=== PATIENT | female | born 1965 | race Two or more races ===

== ENCOUNTER 2017-11-25 08:19 | Outpatient (CLI) | payer OTHER | END 2017-11-25 08:45 | disposition home or self-care (01) | LOC: MRI 08:19 | DX: K80.10 Calculus of gallbladder with chronic cholecystitis without obstruction (principal) | CPT/HCPCS: 74181 ==

== ENCOUNTER 2018-01-06 07:00 | Day surgery (SDC) | payer OTHER ==
[~2018-01-06] VITALS: Ht 154.9 cm; Wt 108.9 kg
[~2018-01-06 07:00] MED LIST: ALTACE2.5 MG PO; BISOPROLOL-HCT1 EACH PO; SYNTHROID150 MCG PO; ZOCOR20 MG PO
== END 2018-01-06 17:00 | disposition home or self-care (01) ==
LOC: SURH 07:00 → CIR.AMB 07:00 → SURH 07:15 → EDSTATUS 07:15 → O/R 12:30 → CIR.AMB 17:00
DX: K80.10 Calculus of gallbladder with chronic cholecystitis without obstruction (principal)

== ENCOUNTER 2020-11-22 00:24 | Emergency (ER) | payer OTHER ==
[~2020-11-22] VITALS: Ht 154.9 cm; Wt 104.3 kg
[2020-11-22] MEDS ORDERED: ALTACE2.5 MG (00:35)
[2020-11-22] MEDS ORDERED: LEVSIN/SL0.125 MG SL (03:43)
== END 2020-11-22 03:55 | disposition home or self-care (01) ==
LOC: ER 00:24
DX: R10.84 Generalized abdominal pain (principal)

== ENCOUNTER 2022-12-06 22:14 | Emergency (ER) | payer OTHER ==
[~2022-12-06] VITALS: Ht 154.9 cm; Wt 104.3 kg
[~2022-12-06 22:14] MED LIST changes: +ALTACE2.5 MG; +LEVSIN/SL0.125 MG SL
[2022-12-06] MEDS ORDERED: LAMOTRIGINE5 MG PO (22:41)
== END 2022-12-06 23:41 | disposition home or self-care (01) ==
LOC: ER 22:14
DX: M94.0 Chondrocostal junction syndrome [Tietze] (principal)

== ENCOUNTER 2024-10-17 11:59 | Inpatient (IN) | payer OTHER ==
[~2024-10-17] VITALS: Ht 154.9 cm; Wt 83.9 kg
[~2024-10-17 11:59] MED LIST changes: +LAMOTRIGINE5 MG PO
--- NOTE | 2024-10-17 12:05 | NUR ---
SE RECIBE PACIENTE EN AMBULANCIA ALERTA Y ORIENTADO X3.LA MISMA REFIERE DOLOR ABDOMINAL Y VOMITOS. S/V ESTABLE AL MOMENTO.PACIENTE EN MCKAY CON BARRANDAS ELEVADA EN ESPERA DE EVALUACION MEDICA.
[2024-10-17] MEDS ORDERED: TRAMADOL HCL 50 MG TABLET PO ONE (17:15)
[2024-10-17] MEDS ORDERED: ONDANSETRON HCL 2 MG/ML VIAL IV ONE (17:15)
[2024-10-17] MEDS ORDERED: FAMOtidine 10 MG/ML (4ML VIAL) IV ONE (17:15)
[2024-10-17] MEDS ORDERED: FAMOTIDINE/PF 20 MG/2 ML VIAL ONE (17:30)
[2024-10-17] MEDS ORDERED: ONDANSETRON HCL 2 MG/ML VIAL ONE (17:30)
--- NOTE | 2024-10-17 17:50 | NUR ---
PTE ES ORIENTADA SOBRE TX MEDICO Y LA MSIAM REFIERE ENTENDER. SE CANALIZA A PTE EN BRAZO JOSE CON ANGIO #20, SE RECOLECTAN MUESTRAS DE LAB Y SE ADMINISTRAN MEDICAMENTOS ROHINI ORDEN MEDICA BAJO MEDIDAS ASEPTICAS.
[2024-10-17 18:02] LABS: HEMATOCRIT 42.8 % (36.0-45.00); HEMOGLOBIN 14.3 g/dL (12.0-15.00); MEAN CELL VOLUME 87.8 fL (80.00-100.00); MEAN CORPUSCULAR HEMOGLOBIN 29.3 pg (27.00-32.0); MEAN CORPUSCULAR HGB CONC 33.3 g/dl (32.0-36.0); PLATELET COUNT 378 K/uL (150-450); RED BLOOD COUNT 4.88 M/uL (4.00-6.00); RED CELL DISTRIBUTION WIDTH 13.4 % (11.5-14.5)
[2024-10-17 18:13] LABS: PARTIAL THROMBOPLASTIN TIME 27.8 SECONDS (22.0-34.0); PROTHROMBIN TIME 10.9 SECONDS (9.0-11.5)
[2024-10-17 18:19] LABS: PH,URINE 5.5 (5.0-8.0); URINE APPEARANCE Cloudy; URINE BILIRRUBIN Negative (NEGATIVE); URINE BLOOD Small; URINE COLOR Yellow; URINE GLUCOSE Negative (NEGATIVE); URINE KETONE 15 (NEGATIVE); URINE LEUKOCYTE Moderate; URINE NITRATE Negative; URINE PROTEIN Trace (NEGATIVE); URINE UROBILINOGEN 0.2 E.U./dl
[2024-10-17 18:24] LABS: URINE EPITHELIAL CELLS 59.5 uL (0.0-38.8); URINE RBC 21.9 uL (0.0-20.8); URINE WBC 61.1 uL (0.0-23.2)
[2024-10-17 18:31] LABS: ALBUMIN 3.8 gm/dL (3.4-5.0); BILIRUBIN TOTAL 0.3 mg/dL (0.3-1.2); CALCIUM 9.4 mg/dL (8.5-10.1); GFR 57.15; GLOBULINA 3.7 G/DL (2.4-3.5); POTASSIUM 4.38 mEq/L (3.5-5.1); TOTAL PROTEIN 7.5 gm/dL (6.4-8.2)
[2024-10-17 19:24] LABS: URINE CAST 0.58 uL (0.0-1.40); URINE YEAST FEW /hpf
[2024-10-17] MEDS ORDERED: PIPERACILLIN/TAZOBACTAM SODIUM 3.375 GM VIAL IV ONE ×2 (20:15→22:12)
[2024-10-17] MEDS ORDERED: BUTALB/ACETAMINOPHEN/CAFFEINE 1 TAB TABLET PO ONE ×2 (21:45→22:12)
[2024-10-17] MEDS ORDERED: ACETAMINOPHEN 500 MG GEL..CAP PO PRN (22:45)
[2024-10-17] MEDS ORDERED: 0.9 % SODIUM CHLORIDE 1,000 ML IV SCH (22:45)
[2024-10-17] MEDS ORDERED: CEFTRIAXONE SODIUM 2,000 MG in 0.9 % SODIUM CHLORIDE 100 ML IV SCH (22:45)
[2024-10-18] MEDS ORDERED: CEFTRIAXONE SODIUM 2,000 MG VIAL ONE (02:41)
[2024-10-18 02:55] VITALS: BP 119/65
[2024-10-18 03:16] LABS: INR 1.02; PARTIAL THROMBOPLASTIN TIME 28.5 SECONDS (22.0-34.0); PROTHROMBIN TIME 11.1 SECONDS (9.0-11.5)
[2024-10-18] MEDS ORDERED: LEVOTHYROXINE SODIUM 150 MCG TABLET PO SCH (06:00)
[2024-10-18 07:40] VITALS: BP 98/61; O2SAT 97
[2024-10-18] MEDS ORDERED: RAMIPRIL 2.5 MG CAPSULE PO SCH (09:00)
[2024-10-18] MEDS ORDERED: FLUOXETINE HCL 20 MG CAPSULE PO SCH (09:00)
[2024-10-18] MEDS ORDERED: RISPERIDONE 0.5 MG TABLET PO SCH (09:00)
[2024-10-18] MEDS ORDERED: FAMOTIDINE/PF 20 MG in 0.9 % SODIUM CHLORIDE 8 ML IV PUSH SCH (09:00)
[2024-10-18] MEDS ORDERED: SODIUM CHLORIDE 0.45 % 1,000 ML IV SCH (13:00)
[2024-10-18 15:13] LABS: AMYLASE 27 U/L (25-115); LIPASE 35 U/L (13-75)
[2024-10-18 16:43] VITALS: BP 108/64; O2SAT 96
[2024-10-18] MEDS ORDERED: SIMVASTATIN 20 MG TABLET PO SCH (17:00)
[2024-10-18 17:48] VITALS: BP 135/67
[2024-10-19 01:20] VITALS: BP 97/64
[2024-10-19 06:33] LABS: HEMOGLOBIN 13.2 g/dL (12.0-15.00); MEAN CELL VOLUME 87.8 fL (80.00-100.00); MEAN CORPUSCULAR HEMOGLOBIN 29.6 pg (27.00-32.0); MEAN CORPUSCULAR HGB CONC 33.7 g/dl (32.0-36.0); PLATELET COUNT 330 K/uL (150-450); RED BLOOD COUNT 4.45 M/uL (4.00-6.00); RED CELL DISTRIBUTION WIDTH 13.7 % (11.5-14.5)
[2024-10-19 07:09] LABS: BILIRUBIN TOTAL 0.2 mg/dL (0.3-1.2); CALCIUM 8.7 mg/dL (8.5-10.1); CREATININE SERUM 0.92 mg/dL (0.55-1.02); GFR 62.92; GLOBULINA 2.5 G/DL (2.4-3.5); PHOSPHOROUS 4.1 mg/dL (2.5-4.9); POTASSIUM 3.73 mEq/L (3.5-5.1); TOTAL PROTEIN 5.5 gm/dL (6.4-8.2)
[2024-10-19 07:10] LABS: C-REACTIVE PROTEIN 0.41 MG/DL (0.00-0.29)
[2024-10-19 08:05] VITALS: BP 109/60
[2024-10-19] MEDS ORDERED: CEFTRIAXONE SODIUM 1,000 MG in 0.9 % SODIUM CHLORIDE 100 ML IV SCH (09:00)
[2024-10-19] MEDS ORDERED: NADOLOL 20 MG TABLET PO SCH (09:00)
[2024-10-19 17:05] VITALS: BP 102/61
[2024-10-19] MEDS ORDERED: PANTOPRAZOLE SODIUM 40 MG TABLET.DR PO SCH (21:00)
[2024-10-20 01:32] VITALS: BP 131/62
[2024-10-20] MEDS ORDERED: LEVOTHYROXINE SODIUM 175 MCG TABLET PO SCH (06:00)
[2024-10-20 08:10] VITALS: BP 124/75
[2024-10-20 16:04] VITALS: BP 115/59
== END 2024-10-20 19:45 | disposition home or self-care (01) | DRG 690 ==
LOC: ER 11:59 → SEC-K 22:47 → MEDI 10-18 16:19
PROVIDERS: General Practice; Internal Medicine Infectious Disease; ADMIT Internal Medicine; ATTEND Internal Medicine
PROC: BW28ZZZ Computerized Tomography (CT Scan) of Head (ICD-10-PCS; principal; 2024-10-17)
PROC: BW21ZZZ Computerized Tomography (CT Scan) of Abdomen and Pelvis (ICD-10-PCS; 2024-10-17)
PROC: B030ZZZ Magnetic Resonance Imaging (MRI) of Brain (ICD-10-PCS; 2024-10-18)
DX: N39.0 Urinary tract infection, site not specified (principal); R65.10 Systemic inflammatory response syndrome (SIRS) of non-infectious origin without acute organ dysfunction; G50.0 Trigeminal neuralgia; E03.8 Other specified hypothyroidism; I10 Essential (primary) hypertension; E78.5 Hyperlipidemia, unspecified
CPT/HCPCS: 70544